=== PATIENT | male | born 2000 | race Caucasian/White ===

== ENCOUNTER 2022-05-06 16:36 | Emergency (ER) | payer OTHER ==
[~2022-05-06] VITALS: Ht 175.3 cm; Wt 79.9 kg
[2022-05-06] MEDS ORDERED: IBUP80TA PO (17:54)
[2022-05-06 18:00] VITALS: BP 140/75
== END 2022-05-06 18:13 | disposition home or self-care (01) ==
LOC: M ED 16:36
DX: S86.891A Other injury of other muscle(s) and tendon(s) at lower leg level, right leg, initial encounter (principal); M76.811 Anterior tibial syndrome, right leg; X50.3XXA Overexertion from repetitive movements, initial encounter; Y93.02 Activity, running